=== PATIENT | female | born 1965 | race Caucasian/White ===

== ENCOUNTER 2021-04-25 13:55 | Emergency (ER) | payer BC, SELFPAY ==
--- NOTE | ~2021-04-25 | US_ITS ---
EXAMINATION: US VENOUS ULTRASOUND WITH DOPPLER LOWER EXTREMITY, LEFT CLINICAL INFORMATION: Pain mid left lower extremity. Assess for occult DVT popliteal fossa cyst. COMPARISON: None TECHNIQUE: Ultrasound of the deep veins is performed from the hip to the calf with compression sonography and color and pulse Doppler assessment. Spectral analysis with color-flow imaging is performed. FINDINGS: There is normal venous compression and respiratory variation and augmented flow. The visualized common femoral vein, superficial femoral vein, profunda femoral vein, popliteal vein, and the trifurcation region shows no evidence of deep venous thrombosis. There is no popliteal fossa cyst or fluid tracking in the posterior calf soft tissues. Additional imaging anterior knee overlying and lateral to the patella shows prepatellar bursal fluid measuring approximately 5 mm in thickness. No hyperemia. US/US venous duplex LE LT IMPRESSION: 1. No DVT demonstrated in the left lower extremity. 2. Fluid prepatellar bursa approximately 5 mm thickness. 3. No visible popliteal fossa cyst.
[2021-04-25 14:13] VITALS: BP 113/74; PULSE 78; RESP 18; TEMP 36.7; O2SAT 98; BMI 63.3
--- NOTE | 2021-04-25 14:34 | ED_ITS ---
HPI - General Adult General Chief complaint: Extremity Injury, Lower Stated complaint: Pain and swelling left knee Time Seen by Provider: 04/25/21 14:32 Source: patient Mode of arrival: ambulatory Limitations: no limitations History of Present Illness HPI narrative: 55 y/o female with history of ulcerative colitis presenting with pain swollen are behind her left knee for the last 2 days. She denies injury or trauma. 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 She states the pain is aching and burning type with radiation down into her calf. No skin changes. No warmth. No fevers, chills, SOB or chest pain. No history of blood clots in herself or her family. MD complaint: posterior knee pain on the left Onset (ago): day(s) (2) Location: left and lower extremity Radiation: distal Severity: moderate Severity scale (1-10): 5 Quality: burning and aching Pain Consistency: intermittent Relieving factors: immobilization and rest Exacerbating factors: movement Associated symptoms: denies other symptoms Treatments prior to arrival: NSAID Related Data Allergies Allergy/AdvReac Type Severity Reaction Status Date / Time adalimumab [From Humira] Allergy Severe Swelling Verified 04/25/21 15:23 infliximab [From Remicade] Allergy Severe Swelling Verified 04/25/21 15:23 Review of Systems Review of Systems: Constitutional: No Fever, No Chills Cardiovascular: No Chest Pain, No SOB Gastrointestinal: No Nausea, No Vomiting Musculoskeletal: + joint pain, + Myalgias Skin: No Skin Lesions, No rash Neuro: No Weakness, No Numbness Heme/Lymph: No Bruising, No Lymphadenopathy PMFSH Past Medical History Attestation statement: The following information was validated with the patient. Medical History (Updated 04/25/21 @ 16:25 by RAUL Cortez) Ulcerative colitis Social History Social History (System 04/25/21 @ 15:23 by Natalie Rosario) Advance Directives: Yes Advance Directives Information Provided: Yes Advance Directives on File: No Patient : No Physical Exam Vital Signs: Vital Signs: Last Vital Signs Temp 98.0 F 04/25/21 14:13 Pulse 78 04/25/21 14:13 Resp 18 04/25/21 14:13 BP 113/74 04/25/21 14:13 Pulse Ox 98 04/25/21 14:13 Body Mass Index 63.3 Appearance: Alert. Oriented X3. No acute distress. HEENT: normal inspection CVS: Normal heart rate and rhythm. Pulses normal. Respiratory: No respiratory distress. Skin: Skin warm and dry. Normal skin color. Normal skin turgor. No rashes. Extremities: normal anterior inspection of the left knee, left popliteal fossa with moderate edema, mild tenderness, no palpable mass or cord, no erythema or warmth. no calf tenderness. NV intact distally. normal left ankle Neuro: Oriented X 3. No motor deficit. No sensory deficit. Course Course Course Narrative: 55 y/o female presenting with nontraumatic left posterior knee pain that radiates into her calf x2 days. US pending to assess for DVT vs Minor's cyst Reevaluation(s) Reevaluation #1: US showed no evidence of DVT or Minor's cyst, Fluid prepatellar bursa approximately 5 mm thickness. Joint is not red or hot. No signs of infection. Will place in CAMRON wrap for support/compression and have her f/u with Ortho for further management. Stable for discharge home. Discharge Plan Discharge Clinical Impression: Acute knee pain Qualifiers: Laterality: left Qualified Code(s): M25.562 - Pain in left knee Patient Disposition: Home, Self-Care Instructions: Swollen Knee Joint (ED), Knee Pain (ED) Additional Instructions: Your ultrasound today did not show any Minor's cyst or blood clots. Recommend rest, elevation and ice several times per day. Use CAMRON wrap for compression and support. Take Motrin and/or Tylenol as needed for pain. Recommend following up with acquisition specialist for further evaluation. Referrals: Carlos Evans MD [Physician] - 1 week (left posterior knee pain and swelling)
== END 2021-04-25 16:38 | disposition home or self-care (01) ==
PROVIDERS: Emergency Provider Emergency Medicine; PCP Internal Medicine
DX: M25.562 Pain in left knee (principal); M79.605 Pain in left leg
CPT/HCPCS: 93971; 99283; 99284